=== PATIENT | male | born 1940 | race Caucasian/White ===

== ENCOUNTER 2021-10-05 17:28 | Emergency (ER) | payer MEDICARE, SELFPAY ==
--- NOTE | 2021-10-05 17:03 | RAD_ITS ---
STUDY: X-RAY CHEST REASON FOR EXAM: Male, 81 years old. CHEST PAIN SOB TECHNIQUE: XR Chest 1 View COMPARISON: Prior comparison studies are not available for review at this time. FINDINGS: Diffuse right pneumonia. Left lower lobe pneumonia. Left upper lobe pneumonia. Normal size heart. Normal mediastinum and jolene. Normal visualized pulmonary arteries. There is atherosclerotic calcification of the aortic arch with tortuosity. There are diffuse degenerative changes of the visualized thoracic spine. There is degenerative osteoarthritis of the bilateral shoulders. There is no demonstrated abnormality of the visualized soft tissue structures of the upper abdomen. RAD/Chest 1 View (Portable) IMPRESSION: Bilateral pneumonia. Electronically Signed: Luc Armando MD at 18:17 EST , Service support ,
[2021-10-05 17:28] VITALS: BP 138/78; PULSE 94; RESP 16; TEMP 36.6; O2SAT 100
--- NOTE | 2021-10-05 17:32 | EKG12_ITS ---
Test Reason : SOB Blood Pressure : / mmHG Vent. Rate : 097 BPM Atrial Rate : 097 BPM P-R Int : 214 ms QRS Dur : 084 ms QT Int : 342 ms P-R-T Axes : 068 -30 068 degrees QTc Int : 434 ms Sinus rhythm with 1st degree A-V block with Premature atrial complexes Left axis deviation Septal infarct , age undetermined Abnormal ECG Confirmed by PEDRITO SIERRA, REDDY ([id number]), assignment desk editor EDE OLIVA ([id number]) on 10/12/2021 10:48:15 AM Referred By: KOKO PHYS Confirmed By:REDDY MAJOR MD
[2021-10-05 18:33] LABS: Absolute Lymphocyte Count 1.22 X10^3/uL (0.83-4.51); Absolute Neutrophil Count 7.2 X10^3/uL (2.0-7.7); Basophil# 0.05 X10^3/uL; Basophil% 0.5 % (0-1); Hematocrit 47.2 % (40-54); Hemoglobin 15.7 g/dL (13.0-16.5); Lymphocyte # 1.22 X10^3/ul (0.83-4.51); Lymphocyte % 12.4 % (19-41); Mean Corp Hgb Conc 33.3 g/dL (32-36); Mean Corpuscular Hgb 30.7 pg (27.0-32.0); Mean Corpuscular Volume 92.4 fL (80-94); Mean Platelet Vol. 9.2 fl (6.2-12.0); Monocyte# 1.13 X10^3/uL; Monocyte% 11.5 % (0-10); NRBC Flagged by Analyzer 0 % (0-5); Neutrophil # 7.15 X10^3/uL (2.7-7.7); Neutrophil % 72.5 % (47-70); Platelet Count 510 K/mm3 (150-450); RBC Distribution Width CV 12.6 % (11.6-14.6); RBC Distribution Width SD 43.3 fl (35.1-43.9); Red Blood Count 5.11 M/mm3 (4.6-6.2); White Blood Count 9.9 K/mm3 (4.4-11.0)
[2021-10-05 18:44] LABS: Anion Gap 7 (5-15); BUN 42 mg/dL (7-18); Calcium,Total 9.5 mg/dL (8.5-10.1); Chloride 106 mmol/L (98-107); EST Glomerular Filtration Rate 33 mL/min (>60); Est Glom Filt Rate - Afr Amer 39 mL/min (>60); Estimated Creatinine Clearance 26.64 ml/min; Glucose 108 mg/dL (74-106); Sodium Level 139 mmol/L (136-145)
--- NOTE | 2021-10-05 19:26 | EKG12_ITS ---
Test Reason : SOB Blood Pressure : / mmHG Vent. Rate : 092 BPM Atrial Rate : 092 BPM P-R Int : 210 ms QRS Dur : 086 ms QT Int : 342 ms P-R-T Axes : 079 -37 053 degrees QTc Int : 422 ms Sinus rhythm with 1st degree A-V block Left axis deviation Septal RI, age undetermined, cannot be excluded Abnormal ECG Confirmed by PEDRITO SIERRA, REDDY ([id number]), deputy editor in chief EDE OLIVA ([id number]) on 10/13/2021 7:56:42 AM Referred By: KOKO PHYS Confirmed By:REDDY MAJOR MD
--- NOTE | 2021-10-05 19:41 | EDS_ITS ---
HPI History of Present Illness Chief Complaint: Shortness of Breath Informant: patient Associated Symptoms cough Chest Pain: Positive for None Narrative Narrative: Patient states he has had upper respiratory tract infection symptoms since 09/08, symptoms persisted and due to the holidays and so he had a positive Covid test on 09/25, he was seen at an ER local to [place], he was prescribed steroids and a Z-Jerod, started that on 09/26. For the last 3 or 4 days, he has gradually felt worse, malaised, little short of breath when he exerts himself, better with resting. No chest pains. No syncope. He was unvaccinated. PFSH PFS Medical History no medical history no medical history Allergy/AdvReac Type Severity Reaction Status Date / Time No Known Allergies Allergy Verified 10/05/21 17:31 ROS ROS ED Constitutional Constitutional ED: Reports body ache(s), chills, fatigue and malaise; Denies fever(s) or headache(s) Eyes Eyes: Denies change in vision or diplopia ENT ENT ED: Denies rhinorrhea or sore throat Cardiovascular Cardiovascular: Denies chest pain or palpitations Respiratory/Chest Respiratory/Chest: Reports cough, dyspnea and dyspnea on exertion Gastrointestinal Gastrointestinal: Denies abdominal pain, diarrhea, nausea or vomiting Genitourinary Genitourinary ED: Denies dysuria or hematuria Musculoskeletal Musculoskeletal: Denies back pain or neck pain Integumentary Denies abscess or rash Neurologic Neurologic: Denies headache(s), paresthesias or weakness Psychiatric Psychiatric: Denies anxiety or suicidal thoughts EXAM Physical Exam Const Vital Signs: 10/05/21 17:28 Temperature 98 F Temperature Source Temporal Pulse Rate 94 Respiratory Rate 16 Blood Pressure 138/78 H Blood Pressure Mean 98 Pulse Ox 100 Oxygen Delivery Method Room Air Positive well nourished and well developed Constitutional Narrative: Well-appearing, no distress, conversive in full sentences General Appearance ED: well developed and NAD HEENT Reports moist mucous membranes normocephalic and atraumatic Eyes PERRL and EOMs intact bilaterally Neck full ROM and supple Resp normal respiratory effort and clear to auscultation bilaterally Cardio regular rate, regular rhythm and no murmurs Rate: Negative for tachycardic GI non-tender and non-distended Auscultation: normoactive bowel sounds Palpation: soft Back/Spine no CVA tenderness General Back: other FROM Extremity normal to inspection and no calf tenderness General Extremety ED: Negative for edema, pulses abnormal or tenderness General Extremity: Negative for edema or pulses abnormal Neuro oriented x3, CN's II-XII intact bilaterally and no sensory deficits noted Sensorium / Orientation: awake and alert Motor Exam: strength 5/5 throughout Skin no rashes or lesions noted and no wounds MDM MDM MDM Narrative Medical decision making narrative: Patient has evidence of bilateral Covid pneumonitis with clear lungs, blood work as noted, he has some RUDDY, unknown what his usual creatinine is but it is 2.1. He was given a liter of fluid for this elevated BUN-creatinine ratio for likely mild dehydration. He looks well. He is speaking in full sentences and his pulse ox is 100% on room air. He actually still has antibiotics on board given the Z-Jerod less than 10 days ago, which is not indicated, neither are steroids. As I discussed with the patient since his oxygenation is excellent, the only thing I would be indicated is monoclonal antibody infusion therapy, however he has had symptoms for longer than 10 days, so those are not indicated either. Given appropriate discharge instructions, he will be discharged after the liter of fluids. Lab Data Attestation: I reviewed the patient's lab results. Labs: Laboratory Results - last 24 hr 10/05/21 10/05/21 18:23 18:23 WBC 9.9 RBC 5.11 Hgb 15.7 Hct 47.2 MCV 92.4 MCH 30.7 MCHC 33.3 RDW Std Deviation 43.3 RDW Coeff of Jannette 12.6 Plt Count 510 H MPV 9.2 Immature Gran % (Auto) 3.100 H Neut % (Auto) 72.5 H Lymph % (Auto) 12.4 L [place] % (Auto) 11.5 H Eos % (Auto) 0.0 Baso % (Auto) 0.5 Absolute Neuts (auto) 7.2 Absolute Lymphs (auto) 1.22 Nucleated RBC % 0 Sodium 139 Potassium 5.0 Chloride 106 Carbon Dioxide 26.0 Anion Gap 7 BUN 42 H Creatinine 2.10 H Estim Creat Clear Calc 26.64 Est GFR (MDRD) Af Amer 39 L Est GFR (MDRD) Non-Af 33 L BUN/Creatinine Ratio 20.0 Glucose 108 H Calcium 9.5 Radiography Diagnostic Testing: Clinical Impression(s) from Imaging Studies Chest X-Ray 10/05/21 17:03 IMPRESSION: Bilateral pneumonia. Electronically Signed: Luc Armando MD at 18:17 EST , Service support , EKG Initial EKG: Attestation: I personally reviewed and interpreted this EKG as follows: Interpretation: Sinus Rhythm, No Acute Injury Pattern and AV Block (1st deg) Prior: No Prior Discharge Plan Triage Chief Complaint: Shortness of Breath ED Provider: Hao Orlando Dx/Rx/DC Orders Clinical Impression: Pneumonia due to COVID-19 virus, RUDDY (acute kidney injury), Dehydration, mild Instructions: Coronavirus Disease 2019 (COVID-19): Caring for Yourself or Others Primary Care Provider: Shane Plascencia Referrals: Shane Plascencia MD [Primary Care Provider] - As Needed Activity Restrictions/Additional Instructions: Try to get a home portable pulse oximeter and closely watch your oxygen levels periodically. If you stay below 90% for more than a minute or so, and/or you are feeling like your breathing is getting worse, return to the emergency department for further evaluation. Disposition Disposition: Home, Self Care
[2021-10-05] MEDS: 0.9% Normal Saline 1,000 ML 999 ML IV (20:15)
[2021-10-05 20:16] VITALS: O2SAT 96
[2021-10-05 21:42] VITALS: BP 141/78; PULSE 73; RESP 16; O2SAT 98
== END 2021-10-05 21:44 | disposition home or self-care (01) ==
PROVIDERS: Emergency Provider Emergency Medicine; PCP Family Medicine; Visit Provider Emergency Medicine
DX: U07.1 COVID-19 (principal); N17.9 Acute kidney failure, unspecified; E86.0 Dehydration; J12.82 Pneumonia due to coronavirus disease 2019; I44.0 Atrioventricular block, first degree
CPT/HCPCS: 71045; 80048; 85025; 93005; 94760; 96360; 99282; J7030